=== PATIENT | male | born 1945 | race Caucasian/White ===

== ENCOUNTER → 2018-10-31 | Outpatient (CLI) | payer MEDICARE, BC ==
--- NOTE | 2018-10-31 11:08 | XR ---
EXAM TYPE: LUMBAR SPINE X RAY SERIES COMPARISON: NONE HISTORY: Lower back pain TECHNIQUE: 3 views are submitted. FINDINGS: Diffuse osteopenia with a slight levoscoliosis. Multilevel moderate degenerative disc disease with fa cet arthropathy. No compression deformities.. The pedicles are intact. The transverse processes are intact. There is no spondylolysis or spondylolisthesis. IMPRESSION: 1. Multilevel moderate degenerative disc disease. Correlate with MRI.
== END | disposition home or self-care (01) ==
LOC: RADXRYALE 10:22
PROVIDERS: ATTEND Family Medicine
DX: M51.36 Other intervertebral disc degeneration, lumbar region (principal)
CPT/HCPCS: 72100

== ENCOUNTER → 2019-02-17 | Outpatient (CLI) | payer MEDICARE, BC ==
--- NOTE | 2019-02-17 09:58 | MR ---
EXAMINATION TYPE: MR lumbar spine wo con DATE OF EXAM: 02/17/2019 COMPARISON: None HISTORY: multifocal motor neuropathy, left foot cramps and numbness CONTRAST: 0 mL intravenous Gadavist. TECHNIQUE: Multiplanar, multisequence images of the lumbar spine were acquired. FINDINGS: Mild disc desiccation is present throughout the lumbar spine. Some mild disc space narrowi ng is present L2-L3. Suspicious focal disc herniations or significant disc bulge is not identified. Vertebral body heights are preserved. Some mild narrowing of the L2-3 disc height is present preservation of disc heights o therwise. No spinal canal stenosis is evident. Neural foramen appear patent. Cord terminates normal L 1 level. IMPRESSION: 1. Mild disc desiccation through the lumbar spine. 2. Mild disc space narrowing L2-3.
== END | disposition home or self-care (01) ==
LOC: RADMRIMAIN 09:17
PROVIDERS: ATTEND Family Medicine
DX: M99.73 Connective tissue and disc stenosis of intervertebral foramina of lumbar region (principal); M51.36 Other intervertebral disc degeneration, lumbar region; G61.82 Multifocal motor neuropathy
CPT/HCPCS: 72148

== ENCOUNTER 2021-07-05 14:46 | Emergency (ER) | payer MEDICARE, BC ==
[2021-07-05 16:08] VITALS: RESP 18; TEMP 98.6
[2021-07-05 16:14] LABS: Basophils # (A) 0.1 k/uL (0-0.2); Basophils % (A) 1 %; Eosinophils # (A) 0.4 k/uL (0-0.7); Eosinophils % (A) 5 %; HCT 40.1 % (39.0-53.0); HGB 12.9 gm/dL (13.0-17.5); Lymphocytes # (A) 1.2 k/uL (1.0-4.8); Lymphocytes % (A) 17 %; MCH 28.8 pg (25.0-35.0); MCHC 32.2 g/dL (31.0-37.0); MCV 89.2 fL (80.0-100.0); Monocytes # (A) 0.5 k/uL (0-1.0); Monocytes % (A) 7 %; Neutrophils # (A) 4.8 k/uL (1.3-7.7); Neutrophils % (A) 68 %; Platelet Count 390 k/uL (150-450); RBC 4.49 m/uL (4.30-5.90); RDW 12.9 % (11.5-15.5); WBC 7.1 k/uL (3.8-10.6)
--- NOTE | 2021-07-05 16:15 | ED ---
General Adult HPI - General Chief complaint: Recheck/Abnormal Lab/Rx Stated complaint: Body Aches Time Seen by Provider: 07/05/21 15:00 Source: patient Mode of arrival: ambulatory Limitations: no limitations - History of Present Illness Initial comments: 75-year-old male with past medical history of arthritis presents emergency department for body aches. He states that they have been present for the past couple of months however worsened over the past week. He has significant ache in his left shoulder and left hip. States that at nighttime he has been unable to lift up his left leg to get up onto the bed and needs to assist himself. He is right-hand dominant. Denies previous history of strokes. No headaches or visual changes. Has been taking Aleve for his pain. He saw his primary care physician 2 weeks ago for symptoms and was referred to orthopedics. He does not take any medications. He admits to intermittent fevers. No chest pain or shortness of breath. Denies any abdominal pain. Does have chronic back pain however nothing new or different. Patient ambulatory without difficulty. No speech changes. No history of cardiac disease. No other alleviating, precipitating modifying factors - Related Data Previous Rx's Medication Instructions Recorded Ketorolac [Toradol] 10 mg PO Q8HR #15 tab 07/05/21 Allergies Allergy/AdvReac Type Severity Reaction Status Date / Time No Known Allergies Allergy Verified 07/05/21 14:53 Review of Systems ROS Statement: Those systems with pertinent positive or pertinent negative responses have been documented in the HPI. ROS Other: All systems not noted in ROS Statement are negative. Past Medical History Past Medical History: No Reported History History of Any Multi-Drug Resistant Organisms: None Reported Past Surgical History: Orthopedic Surgery Past Psychological History: No Psychological Hx Reported Smoking Status: Never smoker Past Alcohol Use History: Occasional Past Drug Use History: None Reported General Exam Limitations: no limitations General appearance: alert, in no apparent distress Head exam: Present: atraumatic, normocephalic, normal inspection Eye exam: Present: normal appearance, PERRL, EOMI. Absent: scleral icterus, conjunctival injection, periorbital swelling ENT exam: Present: normal exam, mucous membranes moist Neck exam: Present: normal inspection. Absent: tenderness, meningismus, lymphadenopathy Respiratory exam: Present: normal lung sounds bilaterally. Absent: respiratory distress, wheezes, rales, rhonchi, stridor Cardiovascular Exam: Present: regular rate, normal rhythm, normal heart sounds. Absent: systolic murmur, diastolic murmur, rubs, gallop, clicks GI/Abdominal exam: Present: soft, normal bowel sounds. Absent: distended, tenderness, guarding, rebound, rigid Extremities exam: Present: normal inspection, normal capillary refill, other (4/5 strength left leg hip flexor). Absent: tenderness, pedal edema, joint swelling, calf tenderness Back exam: Present: normal inspection Neurological exam: Present: alert, oriented X3, CN II-XII intact Psychiatric exam: Present: normal affect, normal mood Skin exam: Present: warm, dry, intact, normal color. Absent: rash Course Vital Signs 07/05/21 07/05/21 07/05/21 14:50 16:05 17:55 Temperature 98.9 F 98.6 F Pulse Rate 88 70 68 Respiratory 20 18 18 Rate Blood Pressure 122/71 132/73 128/74 O2 Sat by Pulse 98 94 L 97 Oximetry EKG Findings - EKG Comments: EKG Findings:: EKG demonstrates sinus rhythm with a rate of 65. SD interval 169. QRS 87. QTC 370. No acute ST segment elevations or depressions Medical Decision Making - Medical Decision Making Upon arrival patient was placed in room 4. History and physical exam was performed. Laboratory studies are conducted and reviewed. C-reactive protein is 5.8. Covid and influenza are negative. CT brain demonstrates no acute bleed or mass effect. Moderate generalized atrophy which is age appropriate. Chronic inflammatory changes is not related sphenoid sinuses. Chest x-ray demonstrates increased kyphosis of the thoracic spine secondary to moderate compression fracture in one of the mid thoracic vertebral segments. No acute cardio pulmonary process. X-ray of the back demonstrates no significant abnormality. Patient was given a dose of Toradol for pain control. Toradol called into the pharmacy. Patient given copies of his paperwork. May need further workup or specialist evaluation to include rheumatology. Patient is aware limitations will be performed in the emergency department. He'll be discharged home and instructed to follow-up with his primary care doctor in 2-4 days. Return to the emergency room for any new or worsening symptoms. Patient agreed treatment plan was discharged home in stable condition - Lab Data Result diagrams: 07/05/21 15:53 07/05/21 15:53 Lab Results 07/05/21 07/05/21 07/05/21 Range/Units 15:53 15:53 15:53 WBC 7.1 (3.8-10.6) k/uL RBC 4.49 (4.30-5.90) m/uL Hgb 12.9 L (13.0-17.5) gm/dL Hct 40.1 (39.0-53.0) % MCV 89.2 (80.0-100.0) fL MCH 28.8 (25.0-35.0) pg MCHC 32.2 (31.0-37.0) g/dL RDW 12.9 (11.5-15.5) % Plt Count 390 (150-450) k/uL MPV 7.0 Neutrophils % 68 % Lymphocytes % 17 % Monocytes % 7 % Eosinophils % 5 % Basophils % 1 % Neutrophils # 4.8 (1.3-7.7) k/uL Lymphocytes # 1.2 (1.0-4.8) k/uL Monocytes # 0.5 (0-1.0) k/uL Eosinophils # 0.4 (0-0.7) k/uL Basophils # 0.1 (0-0.2) k/uL PT 9.6 (9.0-12.0) sec INR 0.9 (<1.2) APTT 24.9 (22.0-30.0) sec Sodium 137 (137-145) mmol/L Potassium 4.1 (3.5-5.1) mmol/L Chloride 105 (98-107) mmol/L Carbon Dioxide 29 (22-30) mmol/L Anion Gap 3 mmol/L BUN 21 H (9-20) mg/dL Creatinine 0.80 (0.66-1.25) mg/dL Est GFR (CKD-EPI)AfAm >90 (>60 ml/min/1.73 sqM) Est GFR (CKD-EPI)NonAf 88 (>60 ml/min/1.73 sqM) Glucose 111 H (74-99) mg/dL Plasma Lactic Acid Timur (0.7-2.0) mmol/L Calcium 9.2 (8.4-10.2) mg/dL Magnesium 2.2 (1.6-2.3) mg/dL Total Bilirubin 0.4 (0.2-1.3) mg/dL AST 33 (17-59) U/L ALT 31 (4-49) U/L Alkaline Phosphatase 109 (38-126) U/L Troponin I (0.000-0.034) ng/mL C-Reactive Protein 5.8 H (<1.0) mg/dL Total Protein 6.8 (6.3-8.2) g/dL Albumin 3.7 (3.5-5.0) g/dL TSH 2.850 (0.465-4.680) mIU/L Coronavirus (PCR) (Not Detectd) Influenza Type A RNA (Not Detectd) Influenza Type B (PCR) (Not Detectd) 07/05/21 07/05/21 07/05/21 Range/Units 15:53 15:53 16:04 WBC (3.8-10.6) k/uL RBC (4.30-5.90) m/uL Hgb (13.0-17.5) gm/dL Hct (39.0-53.0) % MCV (80.0-100.0) fL MCH (25.0-35.0) pg MCHC (31.0-37.0) g/dL RDW (11.5-15.5) % Plt Count (150-450) k/uL MPV Neutrophils % % Lymphocytes % % Monocytes % % Eosinophils % % Basophils % % Neutrophils # (1.3-7.7) k/uL Lymphocytes # (1.0-4.8) k/uL Monocytes # (0-1.0) k/uL Eosinophils # (0-0.7) k/uL Basophils # (0-0.2) k/uL PT (9.0-12.0) sec INR (<1.2) APTT (22.0-30.0) sec Sodium (137-145) mmol/L Potassium (3.5-5.1) mmol/L Chloride (98-107) mmol/L Carbon Dioxide (22-30) mmol/L Anion Gap mmol/L BUN (9-20) mg/dL Creatinine (0.66-1.25) mg/dL Est GFR (CKD-EPI)AfAm (>60 ml/min/1.73 sqM) Est GFR (CKD-EPI)NonAf (>60 ml/min/1.73 sqM) Glucose (74-99) mg/dL Plasma Lactic Acid Timur 1.1 (0.7-2.0) mmol/L Calcium (8.4-10.2) mg/dL Magnesium (1.6-2.3) mg/dL Total Bilirubin (0.2-1.3) mg/dL AST (17-59) U/L ALT (4-49) U/L Alkaline Phosphatase (38-126) U/L Troponin I <0.012 (0.000-0.034) ng/mL C-Reactive Protein (<1.0) mg/dL Total Protein (6.3-8.2) g/dL Albumin (3.5-5.0) g/dL TSH (0.465-4.680) mIU/L Coronavirus (PCR) Not Detected (Not Detectd) Influenza Type A RNA (Not Detectd) Influenza Type B (PCR) (Not Detectd) 07/05/21 Range/Units 16:04 WBC (3.8-10.6) k/uL RBC (4.30-5.90) m/uL Hgb (13.0-17.5) gm/dL Hct (39.0-53.0) % MCV (80.0-100.0) fL MCH (25.0-35.0) pg MCHC (31.0-37.0) g/dL RDW (11.5-15.5) % Plt Count (150-450) k/uL MPV Neutrophils % % Lymphocytes % % Monocytes % % Eosinophils % % Basophils % % Neutrophils # (1.3-7.7) k/uL Lymphocytes # (1.0-4.8) k/uL Monocytes # (0-1.0) k/uL Eosinophils # (0-0.7) k/uL Basophils # (0-0.2) k/uL PT (9.0-12.0) sec INR (<1.2) APTT (22.0-30.0) sec Sodium (137-145) mmol/L Potassium (3.5-5.1) mmol/L Chloride (98-107) mmol/L Carbon Dioxide (22-30) mmol/L Anion Gap mmol/L BUN (9-20) mg/dL Creatinine (0.66-1.25) mg/dL Est GFR (CKD-EPI)AfAm (>60 ml/min/1.73 sqM) Est GFR (CKD-EPI)NonAf (>60 ml/min/1.73 sqM) Glucose (74-99) mg/dL Plasma Lactic Acid Timur (0.7-2.0) mmol/L Calcium (8.4-10.2) mg/dL Magnesium (1.6-2.3) mg/dL Total Bilirubin (0.2-1.3) mg/dL AST (17-59) U/L ALT (4-49) U/L Alkaline Phosphatase (38-126) U/L Troponin I (0.000-0.034) ng/mL C-Reactive Protein (<1.0) mg/dL Total Protein (6.3-8.2) g/dL Albumin (3.5-5.0) g/dL TSH (0.465-4.680) mIU/L Coronavirus (PCR) (Not Detectd) Influenza Type A RNA Not Detected (Not Detectd) Influenza Type B (PCR) Not Detected (Not Detectd) Disposition Clinical Impression: Myalgia, Elevated C-reactive protein Disposition: HOME SELF-CARE Condition: Stable Instructions (If sedation given, give patient instructions): Musculoskeletal Pain (ED) Additional Instructions: Please follow-up with the specialist or primary care doctor for further evaluation of your symptoms. I recommend that he see a energy administrator. Return to the emergency department for any new or worsening symptoms Prescriptions: Ketorolac [Toradol] 10 mg PO Q8HR #15 tab Is patient prescribed a controlled substance at d/c from ED?: No Referrals: Jayson Burleson DO [Primary Care Provider] - 1-2 days Berkley Merrill MD [STAFF PHYSICIAN] - 1-2 days Time of Disposition: 17:40
[2021-07-05 16:26] LABS: INR 0.9 (<1.2); Partial Thromboplastin Time 24.9 sec (22.0-30.0); Prothrombin Time 9.6 sec (9.0-12.0)
[2021-07-05 16:28] LABS: ALT 31 U/L (4-49); AST 33 U/L (17-59); African American GFR (CKD) >90 (>60 ml/min/1.73 sqM); Albumin 3.7 g/dL (3.5-5.0); Alkaline Phosphatase 109 U/L (38-126); Anion Gap 3 mmol/L; Blood Urea Nitrogen 21 mg/dL (9-20); C Reactive Protein 5.8 mg/dL (<1.0); Calcium 9.2 mg/dL (8.4-10.2); Carbon Dioxide 29 mmol/L (22-30); Chloride 105 mmol/L (98-107); Glucose 111 mg/dL (74-99); Magnesium 2.2 mg/dL (1.6-2.3); Non-African American GFR(CKD) 88 (>60 ml/min/1.73 sqM); Potassium 4.1 mmol/L (3.5-5.1); Sodium 137 mmol/L (137-145); Total Bilirubin 0.4 mg/dL (0.2-1.3); Total Protein 6.8 g/dL (6.3-8.2)
--- NOTE | 2021-07-05 16:44 | CT ---
EXAMINATION TYPE: CT brain wo con DATE OF EXAM: 07/05/2021 COMPARISON: None HISTORY: pain down left arm and leg CT DLP: 1100.4 mGycm Automated exposure control for dose reduction was used. FINDINGS: The ventricles, basal cisterns and sulci over the convexities are moderately enlarged consistent with the patient's age. There is no mass effect or shift of midline structures. No abnormal density is seen throughout the brain parenchyma. There is no acute intra or extra-axial h emorrhage. The posterior fossa is grossly normal. Intraorbital contents appear normal and symmetric. There are moderate chronic inflammatory changes in this sphenoid and ethmoid air cells. The mastoid air cells are well aerated. The calvarium is intact. IMPRESSION: 1. NO ACUTE BLEED OR MASS EFFECT. 2. MODERATE GENERALIZED ATROPHY WHICH IS AGE APPROPRIATE. 3. CHRONIC INFLAMMATORY CHANGES IN THE ETHMOID AND SPHENOID SINUSES.
--- NOTE | 2021-07-05 16:46 | XR ---
EXAMINATION TYPE: XR chest 2V DATE OF EXAM: 07/05/2021 COMPARISON: NONE HISTORY: Weakness TECHNIQUE: Frontal and lateral views of the chest are obtained. FINDINGS: There is no focal air space opacity, pleural effusion, or pneumothorax seen. The cardiac silhouette size is within normal limits. There is a moderate compression fracture in the midthoracic spine resulting in marked kyphosis. Without a prior study, the 18th fractures indeterminate. IMPRESSION: 1. No acute cardiopulmonary disease. 2. Increased kyphosis thoracic spine secondary to moderate compression fracture in one of the midthor acic vertebral segments. Age is indeterminate without prior study for comparison.
--- NOTE | 2021-07-05 16:48 | XR ---
Pelvis. HISTORY: Weakness COMPARISON: None. TECHNIQUE: Supine AP view the pelvis is obtained. Pelvic ring is intact there is no diastases of the SI joints or pubic symphysis. There is no fracture or focal intraosseous abnormality. The hips are normal and symmetric bilaterally. IMPRESSION: No significant abnormality seen.
[2021-07-05] MEDS ORDERED: KETOROLAC 15 MG/ML 1 ML VIAL IVP STA (17:19)
[2021-07-05 17:56] VITALS: BP 128/74; PULSE 68
== END 2021-07-05 17:56 | disposition home or self-care (01) ==
LOC: EC 14:46
DX: R79.82 Elevated C-reactive protein (CRP) (principal); M79.10 Myalgia, unspecified site; Z20.822 Contact with and (suspected) exposure to COVID-19
CPT/HCPCS: 36415; 93005; 80053; 84443; 83605; 83735; 84484; 85025; 85610; 85730; 86140; 87502; 87635; 72170; 71046; 70450; 99284; 96374; J1885

== ENCOUNTER → 2021-07-08 | Outpatient (CLI) | payer MEDICARE, BC ==
--- NOTE | 2021-07-08 10:24 | XR ---
Cervical spine HISTORY: [id number] LT SHLD PAIN,CERVICALGIA,LBP 6 views of the cervical spine There is spondylosis especially at C4-5 with minimal retrolisthesis grade 1 C4-5. Loss of disc height is present C4-5 and C5-6, minimal anterolisthesis grade 1 C6-7. Facet arthropathy changes are presen t. Bone mineralization is reduced. Cervical vertebral bodies show preserved height. Oblique images sh ow some foraminal encroachment on the right at C5-6 and C6-7 and on the left at C4-5, C5-6. Suspect t here is a spinal curvature, there is an underlying kyphosis in the thoracic spine. Odontoid view is l imited. IMPRESSION: Degenerative disc disease, facet arthropathy, foraminal encroachment, spinal curvature, a dditional findings above.
--- NOTE | 2021-07-08 10:29 | XR ---
Lumbar spine HISTORY: [id number],[id number],[id number] LT SHLD PAIN,CERVICALGIA,LBP 3 views of the lumbar spine Correlation to prior exam 10/31/2018 Anterolisthesis grade 1 L4-5. Sclerosis in the posterior elements of the lower lumbar spine is consis tent with facet arthropathy. Bone mineralization is reduced. There is multilevel spondylosis. Loss of disc height present at L5-S1, L4-5, L3-4 and L2-3. There is a spinal curvature. Probable vascular ca lcifications are present within the pelvis. IMPRESSION: Osteopenia, scoliosis, degenerative disc disease and facet arthropathy
--- NOTE | 2021-07-08 10:33 | XR ---
Left shoulder HISTORY: [id number],M542,M5442 LT SHLD PAIN,CERVICALGIA,LBP 3 views of the left shoulder Acromioclavicular joint shows arthropathy, some superior displacement of the distal clavicle in relat ion to the acromion is mild. Bone mineralization appears reduced. Glenohumeral joint shows normal ali gnment. No fracture or dislocation. Left lung apex as visualized is normal. The aorta is dense. IMPRESSION: Acromioclavicular joint arthropathy. Correlate for any history of acromioclavicular separ ation.
== END | disposition home or self-care (01) ==
LOC: RADXRYALE 08:40
PROVIDERS: ATTEND Family Medicine
DX: M12.812 Other specific arthropathies, not elsewhere classified, left shoulder (principal); M47.896 Other spondylosis, lumbar region; M47.892 Other spondylosis, cervical region
CPT/HCPCS: 72050; 72100

== ENCOUNTER → 2021-07-26 | Outpatient (CLI) | payer MEDICARE, BC ==
--- NOTE | 2021-07-27 08:49 | MR ---
EXAMINATION TYPE: MR cspine/lspine wo con DATE OF EXAM: 07/26/2021 COMPARISON: Cervical and lumbar spine x-rays July 08, 2021. Prior lumbar spine x-ray February 17, 2019 HISTORY: Neck and lower back pain, RUE weakness, LLE radiculopathy. TECHNIQUE: Multiplanar, multisequence imaging of the cervical and lumbar spine are performed without IV contrast. FINDINGS: C-spine: Sagittal images of the cervical spine show the craniocervical junction to appear within normal limits . The cervical and upper thoracic spinal cord is normal in caliber. There is increased focal signal posteriorly in the cervical spine inferior C7 level sagittal image 10 confirmed on axial images 15 t hrough 17. There is dextroconvex scoliosis centered in the upper thoracic spine. There is marked exag gerated cervical curvature. There is subtle grade 1 retrolisthesis C3 and C4 with more prominent grad e 1 retrolisthesis C4 on C5. Slight grade 1 anterolisthesis C6 on C7 along posterior vertebral body m argin. The vertebral body heights are normal. Mild to moderate disc space narrowing C4-C5 level and m ild disc space narrowing C5-C6 level The bone marrow signal intensity is within normal limits. Axial images show C2-C3 level to appear within normal limits. Axial images at C3-C4 level shows subtle spondylolisthesis and mild broad disc protrusion minimally e ffacing the anterior thecal sac with uncovertebral facet degenerative changes causing mild to moderat e left-sided neural foraminal narrowing. Axial images at L4-L5 level shows spondylolisthesis of a single anterior thecal sac, bilateral neural foramina are patent. Axial images at C5-C6 level shows some right-sided uncovertebral facet spurring causing mild right-si ded neural foraminal narrowing. Axial images at C6-C7 and C7-T1 levels appear within normal limits. Well-defined increased focal signal centrally in the posterior aspect of the spinal cord or cervical thoracic junction IMPRESSION: Exaggerated cervical curvature with multilevel spondylolisthesis and degenerative changes as detailed above. Posterior T2 hyperintense cord lesion cervicothoracic junction of uncertain etiol ogy. Consider contrast enhanced evaluation. L spine: Sagittal images of the lumbar spine show vertebral body heights and alignment to appear satisfactory. There is slight levoconvex scoliosis centered at L3 level. Multilevel disc desiccation with mild to moderate disc space narrowing L2-L3 level and mild disc space narrowing L3-L4 level there is The conu s medullaris is normal in position and signal ending at T12-L1 disc space level. There is hemangioma involving the T12 vertebra sagittal image 9. There is overall heterogeneity with some small nodes in the superior posterior L4 and L5 endplates. There is mild multilevel anterior spurring. Axial images at T12-L1 and L1-L2 levels appear within normal limits. Axial images at L2-L3 level shows mild broad-based disc bulge minimally effacing anterior thecal sac, bilateral neural foramina are patent. Axial images at the L3-L4 level show mild to moderate broad disc bulge minimally effacing the anterio r thecal sac and mild facet arthropathy bilaterally slightly effacing the left posterolateral thecal sac, bilateral neural foramina are patent. Axial images at the L4-L5 level show [id number] facet arthropathy and ligamentum flavum hypertr ophy effacing posterior lateral thecal sac. There is mild broad disc bulge minimally effacing the ant erior thecal sac. Right-sided neural foramina shows mild inferior neural foraminal narrowing. Axial images at L5-S1 level shows with mild facet arthropathy bilaterally. Spinal canal is preserved. Bilateral neural foramina are patent. Asymmetric mild right-sided hydronephrosis is felt present. This is improved from prior study. IMPRESSION: Slight levoconvex scoliosis redemonstrated. Multilevel degenerative changes as detailed a fadia. No significant interval progression from prior MRI. Mild right-sided hydronephrosis currently i s improved from prior MRI. Correlate clinically.
== END | disposition home or self-care (01) ==
LOC: RADMRIMAIN 07:40
PROVIDERS: ATTEND Family Medicine
DX: M51.36 Other intervertebral disc degeneration, lumbar region (principal); M50.321 Other cervical disc degeneration at C4-C5 level; M50.322 Other cervical disc degeneration at C5-C6 level; M25.512 Pain in left shoulder
CPT/HCPCS: 72141; 72148

== ENCOUNTER → 2022-08-07 | Outpatient (CLI) | payer MEDICARE, BC ==
--- NOTE | 2022-08-07 16:32 | XR ---
EXAMINATION TYPE: XR chest 2V DATE OF EXAM: 08/07/2022 COMPARISON: 07/05/2021 HISTORY: Shortness of breath TECHNIQUE: Frontal and lateral views of the chest are obtained. FINDINGS: Scattered senescent parenchymal changes noted. Hyperinflation compatible with COPD. No evidence for infiltrate. No evidence for atelectasis. Heart size is stable. Mediastinal structures are stable and grossly unremarkable. No evidence for hilar prominence. Degenerative changes dorsal spine. IMPRESSION: 1. No evidence for acute pulmonary disease.
== END | disposition home or self-care (01) ==
LOC: RADXRYALE 16:14
PROVIDERS: ATTEND Physician Assistant
DX: R06.02 Shortness of breath (principal); R53.83 Other fatigue
CPT/HCPCS: 71046

== ENCOUNTER 2023-02-23 11:43 | Day surgery (SDC) | payer MEDICARE, BC ==
--- NOTE | 2023-02-19 16:33 | P.GSHP ---
History of Present Illness H&P Date: 02/19/23 Chief Complaint: Prostate cancer The patient is a 77-year-old white male evaluated for an elevated PSA level of 4.9. His father had prostate cancer. JAYESH was unremarkable. The patient underwent a prostate ultrasound with biopsies. The prostate volume was 35 mL. 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 Alternative treatment options were reviewed in detail with the patient, who has elected to undergo IMRT. - Constitutional Constitutional: Reports weight loss - Genitourinary (Male) Genitourinary: Reports urinary frequency Past Medical History Past Medical History: Cancer, Prostate Disorder Additional Past Medical History / Comment(s): prostate, History of Any Multi-Drug Resistant Organisms: None Reported Past Surgical History: No Surgical Hx Reported Past Anesthesia/Blood Transfusion Reactions: No Reported Reaction Smoking Status: Never smoker Medications and Allergies Home Medications Medication Instructions Recorded Confirmed Type Donepezil [Aricept] 5 mg PO DAILY 02/19/23 02/19/23 History Allergies Allergy/AdvReac Type Severity Reaction Status Date / Time No Known Allergies Allergy Verified 02/19/23 08:09 Surgical - Exam - General well developed, well nourished, no distress - Respiratory normal respiratory effort - Abdomen Abdomen: soft, non tender, no guarding, no rigid, no rebound - Genitourinary normal penis with no external lesions, testicles non-tender - Rectum Rectum: normal sphincter tone, no masses, other (Prostate moderately enlarged but smooth) - Psychiatric oriented to time, oriented to person, oriented to place, speech is normal, memory intact Assessment and Plan (1) Malignant neoplasm of prostate Status: Acute Code(s): C61 - MALIGNANT NEOPLASM OF PROSTATE SNOMED Code(s): 032150275 Plan: The Space[employer] implant has been reviewed in detail with the patient. He understands that the rationale for this is to create separation between the prostate and rectum, thus reducing the risk of radiation proctitis. The material begins to breakdown 12-13 weeks following implant, and is reabsorbed by the body. Risks include anesthesia, bleeding, infection, and perineal discomfort. He understands that if the rectal wall is perforated the procedure will need to be aborted. The procedure will be performed by Dr. Turner.
[~2023-02-23 11:43] MED LIST: LIDOCAINE 1% (10MG/ML) FOR IV START INTRADERMA PRN
[2023-02-23 12:25] VITALS: TEMP 97
[2023-02-23] MEDS: LACTATED RINGERS 1,000 ML IV SCH (12:34)
[2023-02-23 12:41] LABS: Basophils # (A) 0.1 k/uL (0-0.2); Basophils % (A) 1 %; Eosinophils # (A) 0.5 k/uL (0-0.7); Eosinophils % (A) 6 %; HCT 47.1 % (39.0-53.0); HGB 15.3 gm/dL (13.0-17.5); Lymphocytes # (A) 1.5 k/uL (1.0-4.8); Lymphocytes % (A) 19 %; MCH 29.5 pg (25.0-35.0); MCHC 32.6 g/dL (31.0-37.0); MCV 90.5 fL (80.0-100.0); Mean Platelet Volume 7.8; Monocytes # (A) 0.4 k/uL (0-1.0); Monocytes % (A) 5 %; Neutrophils # (A) 5.2 k/uL (1.3-7.7); Neutrophils % (A) 67 %; Platelet Count 278 k/uL (150-450); RDW 13.8 % (11.5-15.5); WBC 7.8 k/uL (3.8-10.6)
[2023-02-23 12:56] LABS: African American GFR (CKD) >90 (>60 ml/min/1.73 sqM); Anion Gap 9 mmol/L; Blood Urea Nitrogen 22 mg/dL (9-20); Calcium 9.9 mg/dL (8.4-10.2); Carbon Dioxide 30 mmol/L (22-30); Chloride 102 mmol/L (98-107); Glucose 87 mg/dL (74-99); Non-African American GFR(CKD) >90 (>60 ml/min/1.73 sqM); Potassium 4.4 mmol/L (3.5-5.1); Sodium 141 mmol/L (137-145)
[2023-02-23] MEDS ORDERED: LIDOCAINE 1% INJ 10MG/ML (20 ML MDV) ONE (13:46)
[2023-02-23] MEDS ORDERED: PROPOFOL 10 MG/ML 20 ML VIAL IV ONE (13:46)
[2023-02-23] MEDS: LIDOCAINE 1% INJ 10MG/ML (20 ML MDV) SQ ONE (14:08)
[2023-02-23 14:54] VITALS: BP 122/74; PULSE 62; RESP 16
--- NOTE | 2023-02-25 12:49 | P.OP ---
Date of Procedure: 02/23/23 Preoperative Diagnosis: prostate cancer Postoperative Diagnosis: same Procedure(s) Performed: SpaceOR gel placement Implants: SpaceOR gel Anesthesia: MAC Surgeon: Madhu Turner Estimated Blood Loss (ml): 1 Pathology: none sent Condition: stable Disposition: PACU Indications for Procedure: The patient is a 77-year-old white male evaluated for an elevated PSA level of 4.9. His father had prostate cancer. JAYESH was unremarkable. The patient underwent a prostate ultrasound with biopsies. The prostate volume was 35 mL. 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 Alternative treatment options were reviewed in detail with the patient, who has elected to undergo IMRT. Description of Procedure: The patient was taken to the operating room and placed in the dorsolithotomy position, with his legs supported in West stirrups. The external genitalia was prepped and draped sterilely. The transrectal ultrasound probe was placed intrarectally. The prostate was imaged. The probe was then placed within the stabilizing stand. A spinal needle was advanced under ultrasonic guidance to the level of the urogenital diaphragm, and lidocaine was used to infiltrate the tissues as the needle was withdrawn. Next, the SpaceOAR needle was passed through the midline of the perineum, 1-2 cm anterior to the anal opening. The needle was slowly advanced under ultrasonic guidance until the needle tip was located within the fat plane between the prostate and rectum, at the level of the mid prostate gland. The needle was confirmed to be midline on the axial imaging. A small amount of normal saline was injected for hydrodissection. Next, the SpaceOAR components were mixed and loaded into the Y connector per protocol. The Y connector was then connected to the needle, and the components were injected slowly over a course of approximately 10 seconds. A total of 10 ml was injected. Significant distance was created between the prostate and rectum, as desired. It should be noted that at no point was there any concern of rectal perforation. The needle was withdrawn, as well as the transrectal ultrasound probe, and the procedure was terminated. The patient tolerated the procedure well and was taken to the recovery room in stable condition
== END 2023-02-23 15:06 | disposition home or self-care (01) ==
LOC: OR 11:43
PROVIDERS: ATTEND Urology
DX: C61 Malignant neoplasm of prostate (principal); Z80.42 Family history of malignant neoplasm of prostate; Z79.899 Other long term (current) drug therapy
CPT/HCPCS: 55874; 80048; 85025; C1889; J0690; J2001; J2704

== ENCOUNTER → 2023-03-23 | Outpatient (CLI) | payer MEDICARE, BC ==
--- NOTE | 2023-03-24 22:44 | MR ---
EXAMINATION TYPE: MR Prostate wo/w con DATE OF EXAM: 03/23/2023 7:06 AM COMPARISON: None. CLINICAL INDICATION:Male, 77 years old with history of C61 PROSTATE CA; Prostate cancer. TECHNIQUE: Multi-planar, multi-sequence imaging of the pelvis is performed prior to and following the uncomplicated administration of bolus intravenous gadolinium. CONTRAST: 6.5 Gadavist Interpretive Criteria: PI-RADS v2.1 SERUM PSA: 11.9 on 10/20/2022. 4.5 on 12/17/2021. SURGICAL PATHOLOGY: Positive biopsy and left lateral apex FINDINGS: Prostatic dimensions: 4.9 x 4.9 x 4.1 cm. Ellipsoid Volume: 51.54 (PSA density=0.23 ng/mL/mL) CENTRAL GLAND (Central and Transition Zones/CZ+TZ): Multiple bilateral, heterogenous appearing hypertrophic stromal nodules, without suspicious lesion. L ow T2 signal calcifications seen in the central gland. Median lobe hypertrophy with protrusion into t he base of the bladder. (PI-RADS 2) PERIPHERAL ZONE (PZ): No evidence of masslike abnormality, or localized perfusional hypervascularity, to further suggest a focus of clinically significant prostate cancer. (PI-RADS 2) SEMINAL VESICLES (SV): Symmetric and unremarkable. PERIPROSTATIC TISSUES: Unremarkable. LYMPH NODES: No enlarged pelvic lymph node. REMAINING PELVIS: Circumferential bladder wall thickening with trabeculations likely secondary to chronic bladder outfl ow obstruction. Bilateral hydroureter partially visualized. No abnormal free or organized intrapelvic fluid collection. No pathologic bowel dilation or mural thickening. Right fat containing inguinal hernia OSSEOUS STRUCTURES: No suspicious osseous abnormality. IMPRESSION: 1. No specific features for high-risk prostate cancer. Maximum PI-RADS score: 2. Heterogenous gland w ithout evidence of focal abnormality to correlate with areas of positive biopsy. 2. Moderate BPH, estimated gland volume 51.54 mL. 3. No suspicious osseous lesion. No lymphadenopathy. No evidence of prostate adenocarcinoma involving the periprostatic tissues. 4. Trabeculated bladder perez and hydroureter distally suggestive of chronic bladder outlet obstructi on.
== END | disposition home or self-care (01) ==
LOC: RADMRIMAIN 05:57
PROVIDERS: ATTEND Radiology Radiation Oncology
DX: C61 Malignant neoplasm of prostate (principal); N40.0 Benign prostatic hyperplasia without lower urinary tract symptoms; N32.89 Other specified disorders of bladder
CPT/HCPCS: 72197; A9585